=== PATIENT | female | born 1995 | race Caucasian/White ===

== ENCOUNTER 2017-08-13 11:06 | Emergency (ER) | payer MEDICAID | END 2017-08-13 12:27 | disposition left against medical advice (07) | LOC: ER 12:10 | DX: M79.675 Pain in left toe(s) (principal); Z53.21 Procedure and treatment not carried out due to patient leaving prior to being seen by health care provider ==

== ENCOUNTER 2017-08-14 06:59 | Emergency (ER) | payer MEDICAID ==
[~2017-08-14] VITALS: Ht 152.4 cm; Wt 67.0 kg
[2017-08-14 07:20] VITALS: BP 117/69
[2017-08-14] MEDS ORDERED: ACETAMINOPHEN 325MG TABLET PO ONE (08:00)
== END 2017-08-14 09:19 | disposition home or self-care (01) ==
LOC: ER 06:59
DX: S93.504A Unspecified sprain of right lesser toe(s), initial encounter (principal); W22.8XXA Striking against or struck by other objects, initial encounter; Y93.02 Activity, running; Y92.89 Other specified places as the place of occurrence of the external cause; R03.0 Elevated blood-pressure reading, without diagnosis of hypertension
CPT/HCPCS: 73630; 81025; 99284; Z7610

== ENCOUNTER 2018-01-23 03:59 | Emergency (ER) | payer MEDICAID ==
[~2018-01-23] VITALS: Ht 154.9 cm; Wt 68.0 kg
[2018-01-23 04:06] VITALS: BP 116/81
== END 2018-01-23 05:40 | disposition left against medical advice (07) ==
LOC: ER 03:59
DX: Z53.21 Procedure and treatment not carried out due to patient leaving prior to being seen by health care provider (principal)